=== PATIENT | male | born 1990 | race Caucasian/White ===

== ENCOUNTER 2018-08-15 23:33 | Emergency (ER) | payer SELFPAY ==
--- NOTE | 2018-08-16 01:51 | C.PDOC ---
History Of Present Illness 28 year old male with Hx of anxiety on paxil, sees Dr. Huston, in the past has been on lithium, ativan, and most recently 4 days ago given zolpidem presents stating he still feels anxious, having racing thought when trying to sleep. Denies other complaints. Time Seen by Provider: 08/15/18 23:56 Chief Complaint (Nursing): Anxiety History Per: Patient History/Exam Limitations: no limitations Onset/Duration Of Symptoms: Days Current Symptoms Are (Timing): Still Present Suicide/Self Injury Attempted (Context): None Associated Symptoms: Anxiety Involuntary Hold By: None Recent travel outside of the [place]: No Past Medical History Reviewed: Historical Data, Nursing Documentation, Vital Signs Vital Signs: Last Vital Signs Temp 98.1 F 08/15/18 23:48 Pulse 92 H 08/15/18 23:48 Resp 18 08/15/18 23:48 BP 103/72 08/15/18 23:48 Pulse Ox 99 08/15/18 23:48 - Medical History PMH: Anxiety Family History: States: Unknown Family Hx - Social History Hx Alcohol Use: No Hx Substance Use: No - Immunization History Hx Tetanus Toxoid Vaccination: No Hx Influenza Vaccination: No Hx Pneumococcal Vaccination: No Review Of Systems Constitutional: Negative for: Fever, Chills Eyes: Negative for: Pain, Redness ENT: Negative for: Mouth Swelling Cardiovascular: Negative for: Chest Pain, Palpitations Respiratory: Negative for: Cough, Shortness of Breath Gastrointestinal: Negative for: Nausea, Vomiting, Diarrhea Genitourinary: Negative for: Dysuria, Hematuria Musculoskeletal: Negative for: Back Pain Skin: Negative for: Rash Neurological: Negative for: Weakness, Numbness Psych: Positive for: Anxiety Physical Exam - Physical Exam Appears: Well, Non-toxic, No Acute Distress Skin: Normal Color, Warm, No Rash Head: Atraumatic, Normacephalic Eye(s): bilateral: Normal Inspection, PERRL, EOMI Nose: Normal Oral Mucosa: Moist Neck: Normal ROM, Supple Chest: Symmetrical Cardiovascular: Rhythm Regular Respiratory: No Accessory Muscle Use, Other (Normal inspiratory effort) Gastrointestinal/Abdominal: Soft, No Distention Neurological/Psych: Oriented x3, Normal Speech, Normal Cranial Nerves (Grossly intact) Gait: Steady ED Course And Treatment O2 Sat by Pulse Oximetry: 99 (Room air) Pulse Ox Interpretation: Normal Medical Decision Making Medical Decision Making: Patient seen and cleared by crisis, patient to follow up with Dr. Huston this week. 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 - Scribe Statement The provider has reviewed the documentation as recorded by the Scribe Riley Reid All medical record entries made by the Scribe were at my direction and personally dictated by me. I have reviewed the chart and agree that the record accurately reflects my personal performance of the history, physical exam, medical decision making, and the department course for this patient. I have also personally directed, reviewed, and agree with the discharge instructions and disposition.
[2018-08-16 02:09] VITALS: BP 111/73; PULSE 84; RESP 16; TEMP 97.4
[2018-08-16 02:58] VITALS: O2SAT 99
== END 2018-08-16 02:09 | disposition home or self-care (01) ==
LOC: SUPCPDRO 23:33 → C.ER 23:33
DX: F41.9 Anxiety disorder, unspecified (principal)

== ENCOUNTER 2018-08-25 17:39 | Inpatient (IN) | payer OTHER ==
--- NOTE | 2018-08-25 20:01 | C.PDOC ---
History Of Present Illness 28 y/o male presents to the ED complaining of worsening restlessness and anxiety since yesterday at 7:00pm. Patient reports recent new medication Lamotrigine added by Dr. Huston, which he began taking Friday and stopped on Friday. States he discontinued the medication because it was not helping his anxiety. Patient also reports taking Librium at 6:00pm yesterday, after which he felt SOB and numb all over. Patient states the Librium made him feel more anxious, and his palms and feet were sweaty. He also complains of increased difficulty sitting or lying down, as well as neck pain. Patient offers no other active complaints. He denies any SI or HI. Chief Complaint (Nursing): Psychiatric Evaluation History Per: Patient History/Exam Limitations: no limitations Onset/Duration Of Symptoms: Days (x 2) Current Symptoms Are (Timing): Still Present Suicide/Self Injury Attempted (Context): None Associated Symptoms: Anxiety. denies: Suicidal Thoughts Additional History Per: Prior Records Past Medical History Reviewed: Historical Data, Nursing Documentation, Vital Signs Vital Signs: Last Vital Signs Temp 97.6 F 08/25/18 18:10 Pulse 56 L 08/25/18 18:10 Resp 20 08/25/18 18:10 BP 123/81 08/25/18 18:10 Pulse Ox 98 08/25/18 18:10 - Medical History PMH: Anxiety, Depression Denies: Diabetes, Hepatitis, HIV, HTN, Seizures, Sexually Transmitted Disease Family History: States: Unknown Family Hx - Social History Hx Alcohol Use: No Hx Substance Use: No - Immunization History Hx Tetanus Toxoid Vaccination: No Hx Influenza Vaccination: No Hx Pneumococcal Vaccination: No Review Of Systems Constitutional: Positive for: Sweats. Negative for: Fever, Chills Eyes: Negative for: Vision Change Cardiovascular: Negative for: Chest Pain, Palpitations Respiratory: Negative for: Cough, Shortness of Breath (at present) Gastrointestinal: Negative for: Nausea, Vomiting Musculoskeletal: Positive for: Neck Pain. Negative for: Back Pain Skin: Negative for: Rash Neurological: Negative for: Weakness, Numbness Psych: Positive for: Anxiety. Negative for: Suicidal ideation (or homicidal) Physical Exam - Physical Exam Appears: Non-toxic, No Acute Distress, Other (Appears anxious) Skin: Normal Color, Warm, Dry Head: Atraumatic, Normacephalic Eye(s): bilateral: Normal Inspection Oral Mucosa: Moist Neck: Normal ROM Chest: Symmetrical Cardiovascular: Rhythm Regular Respiratory: Normal Breath Sounds, No Accessory Muscle Use Extremity: Bilateral: Atraumatic, Normal ROM Neurological/Psych: Oriented x3, Normal Speech Gait: Steady ED Course And Treatment - Laboratory Results Result Diagrams: 08/25/18 21:11 08/25/18 21:11 O2 Sat by Pulse Oximetry: 98 (RA) Pulse Ox Interpretation: Normal Medical Decision Making Medical Decision Making: Impression: Anxiety Plan: - Pending crisis evaluation - Labs ordered - Patient is medically cleared for admission for psych observation under Dr. 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 - Scribe Statement The provider has reviewed the documentation as recorded by the Scribe Lisa Pruitt All medical record entries made by the Scribe were at my direction and personally dictated by me. I have reviewed the chart and agree that the record accurately reflects my personal performance of the history, physical exam, medical decision making, and the department course for this patient. I have also personally directed, reviewed, and agree with the discharge instructions and disposition. Decision To Admit - Pt Status Changed To: Hospital Disposition Of: Observation - . Bed Request Type: Psychiatry Admitting Physician: Elise Padilla Patient Diagnosis: Anxiety disorder, unspecified
[2018-08-25 21:17] LABS: BASO % 0.5 % (0.0-2.0); EOS % 0.2 % (0.0-4.0); HEMOGLOBIN 13.5 g/dL (12.0-18.0); LYMPH # 1.3 K/uL (1.0-4.3); MEAN CELL VOLUME 67.6 fL (80.0-94.0); MEAN CORPUSCULAR HEMOGLOBIN 21.3 pg (27.0-31.0); MEAN CORPUSCULAR HGB CONC 31.4 g/dL (33.0-37.0); MEAN PLATELET VOLUME 7.5 fL (7.2-11.7); MONO # 0.3 K/uL (0.0-0.8); MONO % 4.4 % (0.0-10.0); NEUT # 4.9 K/uL (1.8-7.0); NEUT % 74.9 % (50.0-75.0); RBC 6.35 Mil/uL (4.40-5.90); RED CELL DISTRIBUTION WIDTH 14.2 % (11.5-14.5); WHITE BLOOD COUNT 6.6 K/uL (4.8-10.8)
[2018-08-25 21:27] LABS: SQUAMOUS EPITHIAL < 1 /hpf (0-5); URINE BACTERIA RARE (<OCC); URINE BILIRUBIN NEGATIVE (NEGATIVE); URINE BLOOD NEGATIVE (NEGATIVE); URINE CLARITY Hazy (Clear); URINE COLOR Amber (YELLOW); URINE GLUCOSE (UA) NORMAL (Normal); URINE LEUKOCYTE ESTERASE NEG Leu/uL (Negative); URINE PROTEIN 1+ mg/dL (NEGATIVE); URINE UROBILINOGEN NORMAL mg/dL (0.2-1.0)
[2018-08-25 21:29] LABS: ALB/GLOB RATIO 1.4 (1.0-2.1); ALT/SGPT 17 U/L (21-72); AST/SGOT 19 U/L (17-59); BLOOD UREA NITROGEN 11 mg/dL (9-20); CALCIUM 9.7 mg/dl (8.6-10.4); GFR NON-AFRICAN AMERICAN > 60
[2018-08-25 21:35] LABS: BARBITURATES, UR NEGATIVE (NEGATIVE); BENZODIAZEPINES, UR POSITIVE (NEGATIVE); OPIATES, UR NEGATIVE (NEGATIVE); PHENCYCLIDINE, UR NEGATIVE (NEGATIVE)
[2018-08-25 23:21] VITALS: O2SAT 98
--- NOTE | 2018-08-26 00:05 | PCM.BM ---
<Alice Figueroa - Last Filed: 08/26/18 00:02> Treatment Plan Problems - Problems identified on initial assessmt Altered thought Process Date Initiated: 08/25/18 Time Initiated: : Date resolved: 08/25/18 Assessment reference: NA Status: Active Altered sleep patterns Date Initiated: 08/25/18 Time Initiated: 23:30 Date resolved: 08/25/18 Assessment reference: NA Status: Active Anxiety Date Initiated: 08/25/18 Time Initiated: Date resolved: 08/25/18 Assessment reference: NA Status: Active Treatment assets and liabiliti Patient Assests: educated (university), physically healthy (No medical issues) Patient Liabilities: dietary restrictions (vegetariam), language/speech (speak more than one language.) - Milieu Protocol Maintain good personal hygiene: daily Encourage regular showers, daily Remind patient to perform daily oral care, daily Assist patient to perform ADL's Maintain personal safety: every shift Educate patient to report safety concerns to staff, every shift Monitor environment for contraband/sharps Medication safety: Monitor for expected outcome, potential side effects: every shift, Assess barriers to learning: every shift, Assess readiness for medication education: every shift <Antionette Joaquin - Last Filed: 08/26/18 12:07> Family Contact Family involvement: Family/SO is involved Family contact: Family has been contacted by patient - Goals for Treatment Patient goals for treatment: "I want to go to [facility]." Discharge/Continuing Care - Education Needs Education Needs: Patient Medication, Patient Diagnosis/Disease Process, Patient Coping Skills, Patient Placement options, Patient Community resources - Discharge Discharge Criteria: Free of Suicidal thoughts, Normal sleep pattern, Ability to care for self, Reduction of target symptoms Discharge to:: Home - Treatment Team Participation Discussed with Family/SO: No Was Patient/Family/SO present at Treatment Team Meeting: Yes
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
--- NOTE | 2018-08-27 09:43 | PCM.PYCHPN ---
Psychiatric Progress Note - Psychiatric Progress Note Patient seen today, length of contact: 15 min Patient Chief Complaint: I am feeling very anxious Problems Identified/Issues Discussed: Patient seen and evaluated, chart reviewed and discussed with the nurse. Patient reports depressed mood and at times feelings of hopelessness and helplessness. As per the staff patient remained isolated and withdrawn. Patient still reports racing thoughts, poor concentration, poor focus, and very high anxiety. He reports that he has panic attacks that are not letting him sit down. He appears somewhat paranoid and delusional. He is taking the medications and denies any side effects. Supportive therapy and psychoeducation were given. Medication Change: Yes Medical Record Reviewed: Yes Mental Status Examination - Cognitive Function Orientation: Person, Place, Situation, Time Memory: Intact Attention: WNL Concentration: Poor Association: Loose Fund of Knowledge: WNL - Mood Mood: Anxious - Affect Affect: Constricted - Speech Speech: Pressured - Formal Thought Process Formal Thought Process: Delusions, Flight of ideas - Suicidal Ideation Suicidal Ideation: No - Homicidal Ideation Homicidal Ideation: No Goal/Treatment Plan - Goal/Treatment Plan Need for Continued Stay: Remain at risks for inpatient hospitalization Progress Toward Problem(s) and Goals/Treatment Plan: Bipolar disorder severe without psychotic features Generalized Anxiety Disorder CBT Psychoeducation Supportive therapy and group therapy Discontinue Paxil for depression Lamictal for mood Klonopin for anxiety Hydroxyzine for anxiety Discontinue Seroquel for insomnia Trazodone for insomnia
[2018-08-27] MEDS ORDERED: Influenza Vaccine 60 mcg/0.5 mL SYR (4YR UP) IM ONE (10:00)
[2018-08-27] MEDS ORDERED: Pneumococcal 23-Valent Vaccine IM ONE (10:30)
--- NOTE | 2018-08-28 11:36 | PCM.PYCHPN ---
Psychiatric Progress Note - Psychiatric Progress Note Patient seen today, length of contact: 15 min Patient Chief Complaint: I am feeling very anxious Problems Identified/Issues Discussed: Patient seen and evaluated, chart reviewed and discussed with the nurse. Patient appears somewhat disorganized and internally preoccupied. He reports he appeared paranoid and delusional and he remains circumstantial regarding his issues. As per the staff patient remained isolated and withdrawn. Patient still reports racing thoughts, poor concentration, poor focus, and very high anxiety. He is taking the medications and denies any side effects. Supportive therapy and psychoeducation were given. Medication Change: Yes Medical Record Reviewed: Yes Mental Status Examination - Cognitive Function Orientation: Person, Place, Situation, Time Memory: Intact Attention: WNL Concentration: Poor Association: Loose Fund of Knowledge: WNL - Mood Mood: Anxious - Affect Affect: Constricted - Speech Speech: Pressured - Formal Thought Process Formal Thought Process: Delusions, Flight of ideas - Suicidal Ideation Suicidal Ideation: No - Homicidal Ideation Homicidal Ideation: No Goal/Treatment Plan - Goal/Treatment Plan Need for Continued Stay: Remain at risks for inpatient hospitalization Progress Toward Problem(s) and Goals/Treatment Plan: Bipolar disorder severe without psychotic features Generalized Anxiety Disorder CBT Psychoeducation Supportive therapy and group therapy Increase Lamictal for mood Klonopin for anxiety Hydroxyzine for anxiety Start olanzapine for paranoia Trazodone for insomnia
[2018-08-31 06:51] VITALS: RESP 18; TEMP 98.6
[2018-08-31 08:30] VITALS: BP 107/72; PULSE 81
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
== END 2018-08-31 12:15 | disposition home or self-care (01) | DRG 753 ==
LOC: C.ER 17:39 → C.9E 22:18 → C.5E 22:39
PROVIDERS: ADMIT Psychiatry & Neurology Psychiatry; ATTEND Psychiatry & Neurology Psychiatry
PROC: GZ3ZZZZ Medication Management (ICD-10-PCS; principal; 2018-08-25)
PROC: GZHZZZZ Group Psychotherapy (ICD-10-PCS; 2018-08-25)
PROC: GZ56ZZZ Individual Psychotherapy, Supportive (ICD-10-PCS; 2018-08-25)
DX: F31.64 Bipolar disorder, current episode mixed, severe, with psychotic features (principal); F41.0 Panic disorder [episodic paroxysmal anxiety]; F41.1 Generalized anxiety disorder; G47.00 Insomnia, unspecified